=== PATIENT | male | born 1970 | race Caucasian/White ===

== ENCOUNTER 2018-12-19 18:46 | Emergency (ER) | payer BC ==
[2018-12-19] MEDS: ACETAMINOPHEN 325 MG TAB PO (20:14)
[2018-12-19] MEDS: LIDOCAINE 1% (MDV) 20 ML INJ SC (20:14)
== END 2018-12-19 20:48 | disposition home or self-care (01) ==
LOC: FTE 20:48
DX: L72.3 Sebaceous cyst (principal); F17.210 Nicotine dependence, cigarettes, uncomplicated; L02.01 Cutaneous abscess of face; E11.9 Type 2 diabetes mellitus without complications; I10 Essential (primary) hypertension
CPT/HCPCS: 10060; 99283-25